=== PATIENT | female | born 1980 | race Hispanic/Latino ===

== ENCOUNTER 2016-06-15 16:41 | Emergency (ER) | payer OTHER ==
[2016-06-15] MEDS ORDERED: TYLENOL ONE (17:14)
[2016-06-15] MEDS ORDERED: TYLENOL PO ONE (17:15)
[2016-06-15] MEDS ORDERED: ATIVAN PO ONE (23:07)
[2016-06-15] MEDS ORDERED: FLEXERIL PO ONE (23:07)
[2016-06-15] MEDS ORDERED: MOTRIN PO ONE (23:08)
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
[2016-06-16 01:28] VITALS: BP 136/59
== END 2016-06-16 01:29 | disposition home or self-care (01) ==
LOC: ED 16:41
DX: M62.830 Muscle spasm of back (principal); V87.7XXA Person injured in collision between other specified motor vehicles (traffic), initial encounter; Y93.89 Activity, other specified; Y99.9 Unspecified external cause status; Y92.410 Unspecified street and highway as the place of occurrence of the external cause
CPT/HCPCS: 70450; 81025